=== PATIENT | female | born 2000 | race Caucasian/White ===

== ENCOUNTER 2021-07-06 17:59 | Emergency (ER) | payer SELFPAY ==
--- NOTE | 2021-07-06 19:24 | RAD REPORT ---
EXAM DESCRIPTION: RAD - Chest Single View - 07/06/2021 7:04 pm CLINICAL HISTORY: CHEST PAIN Chest pain. COMPARISON: No comparisons FINDINGS: Portable technique limits examination quality. Mild bilateral pulmonary opacities are present, slightly greater on the right. The findings may indic ate interstitial pulmonary edema or viral infection. The heart is normal in size. No displaced fractu res.
--- NOTE | 2021-07-06 20:01 | ER ---
Nurse's Notes [facility] Name: Tonie Rangel Age: 20 yrs Sex: Female : 2000 Arrival Date: 07/06/2021 Time: 18:00 Bed 16 Private MD: Diagnosis: Acute bronchitis, unspecified Presentation: 07/06 18:14 Chief complaint: Patient states: every since Tuesday i have had a really bad cough and tw2 it is getting worse. and i have been trouble breathing. but the coughing is making my stomach hurt really bad. and i am prone to strep throat and i feel like that is it. Coronavirus screen: cough unrelated to allergies, nausea, sore throat, Client presents with at least one sign or symptom that may indicate coronavirus-19. Standard/surgical mask placed on the client. Provider contacted for isolation considerations. Ebola Screen: Patient denies travel to an Ebola-affected area in the 21 days before illness onset. Initial Sepsis Screen: Does the patient meet any 2 criteria? HR > 90 bpm. Does the patient have a suspected source of infection? No. Patient's initial sepsis screen is negative. Risk Assessment: Do you want to hurt yourself or someone else? Patient reports no desire to harm self or others. Onset of symptoms was July 06, 2021. 18:14 Method Of Arrival: Ambulatory tw2 18:14 Acuity: MARTHA 3 tw2 Triage Assessment: 18:17 General: Appears in no apparent distress. obese, Behavior is calm, cooperative, tw2 appropriate for age. Pain: Complains of pain in uvula, left aspect of posterior pharynx and right aspect of posterior pharynx. EENT: Reports pain when swallowing. 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 - Social history:: Smoking status: Patient denies any tobacco usage or history of. Screenin:20 Abuse screen: Denies threats or abuse. Nutritional screening: No deficits noted. tw2 Tuberculosis screening: No symptoms or risk factors identified. Fall Risk None identified. Assessment: 18:45 General: Appears in no apparent distress. Pain: Pt. reports throat pain for the last jt3 couple days. Endorses cough. Neuro: No deficits noted. Cardiovascular: No deficits noted. Respiratory: Airway is patent Respiratory effort is even, unlabored. EENT: Throat is reddened. 20:00 Respiratory: Breath sounds are clear. dc2 Vital Signs: 18:14 BP 170 / 128; Pulse 123; Resp 17; Temp 97.9(TE); Pulse Ox 98% on R/A; tw2 18:47 BP 136 / 93; Pulse 106; Resp 20; Temp 98.6(O); Pulse Ox 98% on R/A; jt3 20:12 BP 139 / 87; Pulse 101; Resp 18; Temp 97.9; Pulse Ox 99% ; Pain 2/10; dc2 ED Course: 18:00 Patient arrived in ED. as 18:16 Triage completed. tw2 18:17 Arm band placed on. tw2 18:18 Flakita Alexander FNP-C is [facility]. kb 18:18 Shagufta Noriega MD is Attending Physician. kb 18:18 Bed in low position. Call light in reach. Adult w/ patient. tw2 18:26 Rg Bustos, RN is Primary Nurse. jt3 18:45 Strep Sent. jt3 18:45 COVID-19 SARS RT PCR (Document "Date of Onset" if Symptomatic) Sent. jt3 18:45 No provider procedures requiring assistance completed. jt3 19:05 Chest Single View XRAY In Process Unspecified. EDMS 20:14 Patient admitted, IV remains in place. dc2 Administered Medications: No medications were administered Outcome: 20:01 Discharge ordered by . kb 20:14 Discharged to home ambulatory, with family. dc2 20:14 Condition: stable 20:14 Discharge instructions given to patient, Instructed on discharge instructions, follow up and referral plans. Demonstrated understanding of instructions, follow-up care. 20:16 Patient left the ED. dc2 Signatures: Dispatcher [employer] EDMS Flakita Alexander FNP-C FNP-Vida Wright Tara, RN RN tw2 Kasie, RANDI Trivedi RN dc2 Rg Bustos RN RN jt3 Corrections: (The following items were deleted from the chart) 18:17 18:16 Fleming Meds: None; tw2 tw2
--- NOTE | 2021-07-06 20:02 | EDPHYS ---
Physician Documentation [facility] Name: Tonie Rangel Age: 20 yrs Sex: Female : 2000 Arrival Date: 07/06/2021 Time: 18:00 Bed 16 Private MD: ED Physician Shagufta Noriega HPI: 07/06 18:30 This 20 yrs old Female presents to ER via Ambulatory with complaints of kb Cough, Sore Throat, Epigastric Pain, Back Pain. 18:30 The patient or guardian reports cough, that is intermittent, described as moderate, kb difficulty breathing. 18:30 Onset: The symptoms/episode began/occurred 4 day(s) ago. Severity of symptoms: At their kb worst the symptoms were mild, moderate, in the emergency department the symptoms are unchanged. Modifying factors: The symptoms are alleviated by nothing, the symptoms are aggravated by nothing. Associated signs and symptoms: Pertinent positives: sore throat, Pertinent negatives: chest pain, diarrhea, ear ache, fever, nausea, rhinorrhea, vomiting. The patient has not experienced similar symptoms in the past. The patient has not recently seen a physician. Pt reports cough, shortness of breath and sore throat that started on Tuesday. States she feels like it is strep because this is how it normally starts for her. 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 - Social history:: Smoking status: Patient denies any tobacco usage or history of. ROS: 18:29 Constitutional: Negative for fever, chills, and weight loss. kb 18:29 ENT: Positive for sore throat. 18:29 Respiratory: Positive for cough, shortness of breath, Negative for dyspnea on exertion, hemoptysis, orthopnea, pleurisy, sputum production, wheezing. 18:29 All other systems are negative. Exam: 18:29 Constitutional: This is a well developed, well nourished patient who is awake, alert, kb and in no acute distress. Head/Face: Normocephalic, atraumatic. Cardiovascular: Regular rate and rhythm with a normal S1 and S2. No gallops, murmurs, or rubs. No pulse deficits. Respiratory: Respirations even and unlabored. No increased work of breathing, no retractions or nasal flaring. Abdomen/GI: Soft, non-tender. No distention Skin: Warm, dry with normal turgor. Normal color. MS/ Extremity: Pulses equal, no cyanosis. Neurovascular intact. Full, normal range of motion. Neuro: Awake and alert, GCS 15, oriented to person, place, time, and situation. Moves all extremities. Normal gait. Psych: Awake, alert, with orientation to person, place and time. Behavior, mood, and affect are within normal limits. 18:29 ENT: Posterior pharynx: Airway: normal, Tonsils: bilaterally enlarged, with erythema, Uvula: normal, midline, swelling, that is moderate, erythema, that is mild, exudate, is not appreciated. Vital Signs: 18:14 BP 170 / 128; Pulse 123; Resp 17; Temp 97.9(TE); Pulse Ox 98% on R/A; tw2 18:47 BP 136 / 93; Pulse 106; Resp 20; Temp 98.6(O); Pulse Ox 98% on R/A; jt3 20:12 BP 139 / 87; Pulse 101; Resp 18; Temp 97.9; Pulse Ox 99% ; Pain 2/10; dc2 MDM: 18:19 Patient medically screened. kb 18:29 Data reviewed: vital signs, nurses notes. Data interpreted: Pulse oximetry: on room air kb is 98 %. Interpretation: normal. 20:01 Counseling: I had a detailed discussion with the patient and/or guardian regarding: the kb historical points, exam findings, and any diagnostic results supporting the discharge/admit diagnosis, lab results, radiology results, the need for outpatient follow up, a family practitioner, to return to the emergency department if symptoms worsen or persist or if there are any questions or concerns that arise at home. 07/06 18:23 Order name: Strep; Complete Time: 20:00 kb 07/06 18:23 Order name: COVID-19 SARS RT PCR (Document "Date of Onset" if Symptomatic); Complete kb Time: 20:00 07/06 18:23 Order name: Chest Single View XRAY; Complete Time: 19:29 kb 07/06 18:25 Order name: Vital Signs; Complete Time: 18:45 kb 07/06 19:59 Order name: Throat Culture EDMS Administered Medications: No medications were administered Disposition: 07/07 09:09 Co-signature as Attending Physician, Shagufta Noriega MD I agree with the assessment and sp3 plan of care. Disposition Summary: 07/06/21 20:01 Discharge Ordered Location: Home kb Condition: Stable kb Diagnosis - Acute bronchitis, unspecified kb Followup: kb - With: Emergency Department - When: As needed - Reason: Worsening of condition Followup: kb - With: Private Physician - When: 2 - 3 days - Reason: Recheck today's complaints, Continuance of care, Re-evaluation by your physician Discharge Instructions: - Acute Bronchitis, Adult, [id number] kb - Discharge Summary Sheet tw2 Forms: - Medication Reconciliation Form kb - Thank You Letter kb - Antibiotic Education kb - Work release form tw2 - Prescription Opioid Use kb Prescriptions: - albuterol sulfate 90 mcg/actuation Inhalation HFA aerosol inhaler - inhale 2 puff by INHALATION route every 4-6 hours As needed; 1 Inhaler; kb Refills: 0, Product Selection Permitted Signatures: Dispatcher [employer] Flakita Redding, MERT CALDERON-Shannan Rivero, RN RN tw2 Shagufta Noriega MD MD sp3 Corrections: (The following items were deleted from the chart) 07/06 18:17 18:16 Home Meds: None; tw2 tw2
[2021-07-06 20:28] VITALS: BP 139/87; TEMP 97.9; O2SAT 99
--- OUTSIDE RECORDS SUMMARY | 2021-07-11 16:41 | XMS REPORT | Continuity of Care Document ---
:2000 Author Organization [facility] t Address [address] [place] [address] Care Team Providers Name Role Phone Erin Mcmullen Attending Clinician Unavailable Physician, Primary or Family Admitting Clinician Unavailabl e Payers Payer Name Policy Type Policy Number Effective Date Expiration Date S ource Problems This patient has no known problems. Allergies, Adverse Reactions, Alerts Allergy Allergy Status Severity Reaction(s) Onset Inactive Treating Comm ents Source Name Type Date Date Clinician No Known DA Active U [facility]: [address] No Known DA Active U 0 [facility] 00:[facility]: [address] No Known DA Active U 0 [facility] 00:00: [address] No Known DA Active U 2020-0 [facility] 00:00: [address] Medications This patient has no known medications. Procedures This patient has no known procedures. Encounters Start End Encounter Admission Attending Care Care Encounter Source Date/Time Date/Time Type Type Clinicians Facility Department ID 2020-10-31 Inpatient [facility] [id number] [facility] 20:38:00 [id number] [facility] 2021-04-07 2021-04-07 Emergency EM Theron Mcmullen [facility] [id number] [facility] 17:08:00 23:47:00 [id number] [facility] Results Test Description Test Time Test Comments Results Result [facility] e Comments - XR CHEST 2 V 2021-04-07 18:50:00 [facility] : 2000 Sex: F FAX: Nathalie Zhao [phone] Abrams: St: REG Patient Name: ANSHU SANCHEZ Unit No: [id number] EXAMS: CPT CODE: [id number] XR CHEST 2 V [id number] DICTATION LOCATION: 8 HISTORY: Female, 20 years of age with cough, fever, dyspnea EXAM: 2 VIEW CHEST X-RAY COMPARISON: None COMMENT: PA and lateral views are provided. No acute infiltrate or effusion is seen. Cardiomediastinal silhouette is within normal limits. No acute bony abnormalities. IMPRESSION: No acute cardiopulmonary disease. at 1850 Reported and signed by: Laurita Gonzales MD CC: Nathalie Zhao Dictated Date/Time: 04/07/2021 (1849)Technologist: Joelle Ruiz Transcribed Date/Time: 04/07/2021 (1849) By: Nora Orig Print D/T: S: 04/07/2021 (843) [facility] NAME: ANSHU SANCHEZ [address] [place] [address] Blvd PHYS: Nathalie Ruiz [place] [address] : 2000 AGE: 20 SEX: F LOC: JARRED PHONE #: [phone] EXAM DATE: 04/07/2021 STATUS: REG ER FAX #: [phone] RAD NO: DC Dt: PAGE 1 Signed Report COVID 19 INHOUSE AG 2021-04-07 18:46:00 Test Item Value Reference Range Interpretation Comme nts COVID 19 INHOUSE AG (test code = [id number]) Negative Neg PT AND [id number] 22:27:00 Test Item Value Reference Interpretation Comments Range PT PATIENT (test 11.3 SECONDS 9.4-12.5 N code = PTP) INTERNATIONAL 0.99 INR 0.88-1.13 N NORMAL RATIO (test Unit --------- code = INR) ---------Therap eutic range for INR i s dependent upon the situation.2.0-3 .0 Prophylaxis / v enous thromboembolism , Treatment of DVT, Acute myocardia l infarction stro ke prevention, Systemic emboli sm prevention in fibrillation3.0 -4.5 AMI recurrence prev ention, Systemic emboli sm prevention in p rosthetic heart 3.0-5.4 A OR mortality reduc tion THROMBOPLASTIN TIME 31.4 SECONDS 24-37.7 N THERAPEU TIC RANGE FOR PARTIAL (test code UNFRACTIO NATED HEPARIN = = PTT) 50.5-83.6 SEC T his test is not recommen ded to monitor low molecularweight heparin or danaparoid. Order LMWH test COLLECTION THROUGH LINES THAT HAVE BEEN PREVIOUSLY FLUS HEDWITH HEPARIN SHOULD BE AVOIDED DUE TO POSSIBLE HEPARINCONTAMIN ATION BASIC METABOLIC [id number] 22:18:00 Test Item Value Reference Range Interpretation Comments SODIUM (test code = 138.0 mmol/L 133-144 N NA) POTASSIUM (test 3.4 mmol/L 3.5-5.1 L code = K) CHLORIDE (test code 105 mmol/L 95-105 N = CL) CARBON DIOXIDE 28 mmol/L 21-32 N (test code = CO2) ANION GAP (test 5.0 GAP calc 4.0-15.0 N code = GAP) GLUCOSE (test code 138 MG/DL 70-110 H = GLU) BLOOD UREA NITROGEN 11 MG/DL 7-18 N (test code = BUN) CREATININE (test 0.80 MG/DL 0.55-1.30 N Results may be code = CREAT) depressed if p atient is takingN-Acetylc ystei ne (NAC) and Metamizole (Dipyrone). CALCIUM (test code 9.1 MG/DL 8.5-10.1 N = CA) INDEX HEMOLYSIS 1 NORMAL <10 MG See_Comment [Automat ed message] (test code = Index/DL The system Playdom) generated this result transmit sabina reference range : 1 NORMAL. The reference range was not used to interpret this result as normal/abnormal . INDEX ICTERIC (test 1 NORMAL <2 MG See_Comment [Auto mated message] code = ICTINDEX) Index/DL The system which generated this result transmit sabina reference range : 1 NORMAL. The reference range was not used to interpret this result as normal/abnormal . INDEX LIPEMIA (test 1 NORMAL <50 MG See_Comment [Aut omated message] code = LIPINDEX) Index/DL The system which generated this result transmit sabina reference range : 1 NORMAL. The reference range was not used to interpret this result as normal/abnormal . HEPATIC FUNCTION [id number] 22:18:00 Test Item Value Reference Range Interpretation Comments TOTAL PROTEIN (test code = PROT) 8.3 G/DL 6.4-8.2 H ALBUMIN (test code = ALB) 3.8 G/DL 3.4-5.0 N BILIRUBIN TOTAL (test code = 0.21 MG/DL 0.00-1.00 N BILT) BILIRUBIN DIRECT (test code = < 0.10 MG/DL 0.00-0.30 N BILD) BILIRUBIN INDIRECT (test code = 0.21 MG/DL 0.2-1.3 N BILIND) SGOT/AST (test code = AST) 29 Unit/L 15-37 N SGPT/ALT (test code = ALT) 60 Unit/L 12-78 N ALKALINE PHOSPHATASE TOTAL (test 85 Unit/L 45-117 N code = ALKP) [id number] 22:18:00 Test Item Value Reference Range Interpretation Comments LIPASE (test code = LIP) 100 Unit/L 114-286 L BASIC METABOLIC [id number] 22:15:00 Test Item Value Reference Range Interpretation Comments SODIUM (test code = 138.0 mmol/L 133-144 N NA) POTASSIUM (test 3.4 mmol/L 3.5-5.1 L code = K) CHLORIDE (test code 105 mmol/L 95-105 N = CL) CARBON DIOXIDE 28 mmol/L 21-32 N (test code = CO2) ANION GAP (test 5.0 GAP calc 4.0-15.0 N code = GAP) GLUCOSE (test code 138 MG/DL 70-110 H = GLU) BLOOD UREA NITROGEN 11 MG/DL 7-18 N (test code = BUN) CREATININE (test 0.80 MG/DL 0.55-1.30 N Results may be code = CREAT) depressed if p atient is takingN-Acetylc ystei ne (NAC) and Metamizole (Dipyrone). CALCIUM (test code 9.1 MG/DL 8.5-10.1 N = CA) INDEX HEMOLYSIS 1 NORMAL <10 MG See_Comment [Automat ed message] (test code = Index/DL The system Door 6 HEMINDEX) generated this result transmit sabina reference range : 1 NORMAL. The reference range was not used to interpret this result as normal/abnormal . INDEX ICTERIC (test 1 NORMAL <2 MG See_Comment [Auto mated message] code = ICTINDEX) Index/DL The system which generated this result transmit sabina reference range : 1 NORMAL. The reference range was not used to interpret this result as normal/abnormal . INDEX LIPEMIA (test 1 NORMAL <50 MG See_Comment [Aut omated message] code = LIPINDEX) Index/DL The system which generated this result transmit sabina reference range : 1 NORMAL. The reference range was not used to interpret this result as normal/abnormal . HEPATIC FUNCTION [id number] 22:15:00 Test Item Value Reference Range Interpretation Comments TOTAL PROTEIN (test code = PROT) G/DL 6.4-8.2 ALBUMIN (test code = ALB) 3.8 G/DL 3.4-5.0 N BILIRUBIN TOTAL (test code = MG/DL 0.00-1.00 BILT) BILIRUBIN DIRECT (test code = < 0.10 MG/DL 0.00-0.30 N BILD) BILIRUBIN INDIRECT (test code = MG/DL 0.2-1.3 BILIND) SGOT/AST (test code = AST) 29 Unit/L 15-37 N SGPT/ALT (test code = ALT) 60 Unit/L 12-78 N ALKALINE PHOSPHATASE TOTAL (test Unit/L 45-117 code = ALKP) [id number] 22:15:00 Test Item Value Reference Range Interpretation Comments LIPASE (test code = LIP) 100 Unit/L 114-286 L CBC W/O [id number] 22:00:00 Test Item Value Reference Range Interpretation Comments WHITE BLOOD CELL (test code = WBC) 8.2 K/mm3 4.1-12.1 N RED BLOOD CELL (test code = RBC) 4.94 M/mm3 3.8-5.5 N HEMOGLOBIN (test code = HGB) 14.8 G/DL 10.6-15.8 N HEMATOCRIT (test code = HCT) 44.6 % 31.8-47.4 N MEAN CELL VOLUME (test code = MCV) 90.3 fL 80.1-101.1 N MEAN CELL HGB (test code = MCH) 30.0 pg 25.3-35.3 N MEAN CELL HGB CONCETRATION (test 33.2 G/DL 32.7-35.1 N code = MCHC) RED CELL DISTRIBUTION WIDTH (test 12.0 % 12.2-16.4 L code = RDW) PLATELET COUNT (test code = PLT) 321 K/mm3 155-337 N MEAN PLATELET VOLUME (test code = 9.9 fL 6.8-11.2 N MPV) URINALYSIS [id number] 21:18:00 Test Item Value Reference Range Interpretation Comments UA COLOR (test code = YELLOW DESCRIPT YELLOW COLU) UA APPEARANCE (test TURBID CLEAR A code = APPU) (1+)HAZY-CLDY DESCRIPT UA GLUCOSE DIPSTICK NORMAL (0) See_Comment [Automa sabina (test code = DGLUU) mg/dL message] The system which generated this result transmit sabina reference range : 0 (NORMAL). The reference range was not used to interpret this result as normal/abnormal . UA BILIRUBIN DIPSTICK NEGATIVE (0.0) See_Comment [Au tomated (test code = BILU) mg/dL message] The system which generated this result transmit sabina reference range : (NEG) 0. The reference range was not used to interpret this result as normal/abnormal . UA KETONE DIPSTICK NEGATIVE (0) See_Comment [Automat ed (test code = KETU) mg/dL message] The system which generated this result transmit sabina reference range : (NEG) 0. The reference range was not used to interpret this result as normal/abnormal . UA SPECIFIC GRAVITY 1.029 SG 1.001-1.035 (test code = SGU) UA BLOOD DIPSTICK NEGATIVE (0.00) See_Comment [Autom ated (test code = CARLOS) mg/dL message] T he system which generated this result transmit sabina reference range : 0 (NEG). The reference range was not used to interpret this result as normal/abnormal . UA PH DIPSTICK (test 6.5 pH UNITS 4.6-8.0 code = YUMIKO) UA PROTEIN DIPSTICK 20 (TRACE) See_Comment A [Automa sabina (test code = PROU) mg/dL message] The system which generated this result transmit sabina reference range : <30 (1+). The reference range was not used to interpret this result as normal/abnormal . UA UROBILINIOGEN NORMAL (0) See_Comment [Automated DIPSTICK (test code = mg/Dl messag e] The URO) system which generated this result transmit sabina reference range : <2.0 (1+). The reference range was not used to interpret this result as normal/abnormal . UA NITRITE DIPSTICK NEGATIVE (0) NEG (test code = PEDRO) SCREEN UA LEUKOCYTE ESTERASE 75 Leuk/mcL See_Comment A [Auto mated DIPSTICK (test code = messag e] The LEUU) system which generated this result transmit sabina reference range : (NEG) 0. The reference range was not used to interpret this result as normal/abnormal . UA WBC (test code = 5-10 #WBC/HPF 0-3 A WBCU) UA RBC (test code = 0-3 #RBC/HPF 0-3 RBCU) UA BACTERIA (test MODERATE >5 NONE-FEW A code = BACU) /HPF UA SQUAMOUS CELLS FEW >2 /UL NONE-SQepi (test code = SQU) UA HYALINE CAST (test 0-5 #/LPF 0-3 code = HYALU) UA MUCUS (test code = RARE /LPF NONE MUCU) UR HCG [id number] 21:18:00 Test Item Value Reference Range Interpretation Comments UR HCG QUAL (test NEGATIVE NEG Very dilut e urines with a code = HCGQLU) low specific gravity may notcontain repr esentative levels of hCG. UR HCG [id number] 21:11:00 Test Item Value Reference Range Interpretation Comments UR HCG QUAL (test code = HCGQLU) NEG URINALYSIS [id number] 21:11:00 Test Item Value Reference Range Interpretation Comments UA COLOR (test code = YELLOW DESCRIPT YELLOW COLU) UA APPEARANCE (test TURBID CLEAR A code = APPU) (1+)HAZY-CLDY DESCRIPT UA GLUCOSE DIPSTICK NORMAL (0) See_Comment [Automa sabina (test code = DGLUU) mg/dL message] The system which generated this result transmit sabina reference range : 0 (NORMAL). The reference range was not used to interpret this result as normal/abnormal . UA BILIRUBIN DIPSTICK NEGATIVE (0.0) See_Comment [Au tomated (test code = BILU) mg/dL message] The system which generated this result transmit sabina reference range : (NEG) 0. The reference range was not used to interpret this result as normal/abnormal . UA KETONE DIPSTICK NEGATIVE (0) See_Comment [Automat ed (test code = KETU) mg/dL message] The system which generated this result transmit sabina reference range : (NEG) 0. The reference range was not used to interpret this result as normal/abnormal . UA SPECIFIC GRAVITY 1.029 SG 1.001-1.035 (test code = SGU) UA BLOOD DIPSTICK NEGATIVE (0.00) See_Comment [Autom ated (test code = CARLOS) mg/dL message] T he system which generated this result transmit sabina reference range : 0 (NEG). The reference range was not used to interpret this result as normal/abnormal . UA PH DIPSTICK (test 6.5 pH UNITS 4.6-8.0 code = YUMIKO) UA PROTEIN DIPSTICK 20 (TRACE) See_Comment A [Automa sabina (test code = PROU) mg/dL message] The system which generated this result transmit sabina reference range : <30 (1+). The reference range was not used to interpret this result as normal/abnormal . UA UROBILINIOGEN NORMAL (0) See_Comment [Automated DIPSTICK (test code = mg/Dl messag e] The URO) system which generated this result transmit sabina reference range : <2.0 (1+). The reference range was not used to interpret this result as normal/abnormal . UA NITRITE DIPSTICK NEGATIVE (0) NEG (test code = PEDRO) SCREEN UA LEUKOCYTE ESTERASE 75 Leuk/mcL See_Comment A [Auto mated DIPSTICK (test code = messag e] The LEUU) system which generated this result transmit sabina reference range : (NEG) 0. The reference range was not used to interpret this result as normal/abnormal . UA WBC (test code = 5-10 #WBC/HPF 0-3 A WBCU) UA RBC (test code = 0-3 #RBC/HPF 0-3 RBCU) UA BACTERIA (test MODERATE >5 NONE-FEW A code = BACU) /HPF UA SQUAMOUS CELLS FEW >2 /UL NONE-SQepi (test code = SQU) UA HYALINE CAST (test 0-5 #/LPF 0-3 code = HYALU) UA MUCUS (test code = RARE /LPF NONE MUCU) GLUCOSE BEDSIDE [id number] 21:03:00 Test Item Value Reference Range Interpretation Comments GLUCOSE BEDSIDE TESTING (test code 123 MG/DL 70-119 H = GLUBED)
== END 2021-07-06 20:16 | disposition home or self-care (01) ==
LOC: ER 17:59
DX: J20.9 Acute bronchitis, unspecified (principal); E11.9 Type 2 diabetes mellitus without complications; Z20.822 Contact with and (suspected) exposure to COVID-19
CPT/HCPCS: 71045; 87070; 87081; 99283; U0003